=== PATIENT | female | born 1945 | race Native Hawaiian/Other Pacific Islander ===

== ENCOUNTER 2016-11-19 08:57 | Outpatient (CLI) | payer OTHER ==
[~2016-11-19 08:57] MED LIST: ACIPHEX20 MG PO; ALEN70TA19 PO; ALPR0.2566 PO; BENICAR HCT1 TAB PO; BENICAR40 MG PO; CVS OMEPRAZOLE20 MG OR; DONE5TAB PO; FOLI1TAB26 PO; FORTAMET1000 MG PO; GABA300C2 PO; HUMALOG100 MG/ML SC; HYDR-2748 PO; HYDR10TA51 PO; IRON325 MG PO; KETO10TA34 PO; LANTUS SOLOSTAR SC; LEVO0.0218 PO; LEXAPRO10 MG OR; METF500T PO; METHO2.5 PO; MOBIC15 MG PO; NAPROSYN500 MG PO; PRAVACHOL20 MG PO; PRED10TA27 PO; UNITH DIRECT150 MCG PO; VITAMIN D2 PO; ZESTRIL40 MG OR
[2016-11-19 09:12] LABS: PLATELET COUNT 364 K/uL (152-353)
[2016-11-19 09:26] LABS: POTASSIUM 4.3 mmol/L (3.6-5.2); SODIUM 137 mmol/L (136-145)
== END 2016-11-19 19:19 | disposition home or self-care (01) ==
LOC: LAB 08:57
PROVIDERS: Internal Medicine
DX: Z00.01 Encounter for general adult medical examination with abnormal findings (principal); D53.8 Other specified nutritional anemias; E11.9 Type 2 diabetes mellitus without complications; E03.8 Other specified hypothyroidism; I10 Essential (primary) hypertension; R82.99 Other abnormal findings in urine
CPT/HCPCS: 80053; 80061; 81000; 82728; 83036; 83540; 83550; 84443; 84550; 85027; 85044; 85651; 87077; 87086; 87088; 87186

== ENCOUNTER 2016-11-22 15:12 | Outpatient (CLI) | payer OTHER ==
[~2016-11-22] VITALS: Ht 30.5 cm; Wt 1.0 kg
[2016-11-22 15:15] VITALS: BP 185/78; TEMP 98.8
[2016-11-22 17:05] VITALS: BP 186/83; TEMP 98.6
== END 2016-11-22 21:29 | disposition home or self-care (01) ==
LOC: INF 15:12
DX: D50.8 Other iron deficiency anemias (principal)
CPT/HCPCS: 96365; J1756

== ENCOUNTER 2017-01-15 16:15 | Outpatient (CLI) | payer OTHER ==
[2017-01-15 17:10] LABS: PLATELET COUNT 264 K/uL (152-353)
== END 2017-01-15 19:46 | disposition home or self-care (01) ==
LOC: LABW 16:15
DX: E11.9 Type 2 diabetes mellitus without complications (principal); I10 Essential (primary) hypertension; M79.671 Pain in right foot
CPT/HCPCS: 36415; 85027; 85651

== ENCOUNTER 2017-02-18 12:22 | Outpatient (CLI) | payer OTHER ==
[2017-02-18 14:06] LABS: PLATELET COUNT 246 K/uL (152-353)
[2017-02-18 15:40] LABS: POTASSIUM 4.1 mmol/L (3.6-5.2)
== END 2017-02-18 19:16 | disposition home or self-care (01) ==
LOC: LAB 12:22
PROVIDERS: Internal Medicine Infectious Disease
DX: Z79.2 Long term (current) use of antibiotics (principal); Z51.81 Encounter for therapeutic drug level monitoring; L03.115 Cellulitis of right lower limb
CPT/HCPCS: 80048; 85027; 86140

== ENCOUNTER 2017-02-25 11:19 | Outpatient (CLI) | payer OTHER ==
[2017-02-25 11:40] LABS: PLATELET COUNT 262 K/uL (152-353)
[2017-02-25 13:17] LABS: POTASSIUM 4.7 mmol/L (3.6-5.2)
== END 2017-02-25 19:25 | disposition home or self-care (01) ==
LOC: LAB 11:19
PROVIDERS: Internal Medicine Infectious Disease
DX: M86.171 Other acute osteomyelitis, right ankle and foot (principal); L03.115 Cellulitis of right lower limb; Z79.2 Long term (current) use of antibiotics; Z45.2 Encounter for adjustment and management of vascular access device
CPT/HCPCS: 80048; 85027; 86140

== ENCOUNTER 2017-03-04 12:33 | Outpatient (CLI) | payer OTHER ==
[2017-03-04 13:28] LABS: PLATELET COUNT 249 K/uL (152-353)
[2017-03-04 13:32] LABS: POTASSIUM 4.1 mmol/L (3.6-5.2)
== END 2017-03-04 19:28 | disposition home or self-care (01) ==
LOC: LAB 12:33
PROVIDERS: Internal Medicine Infectious Disease
DX: M86.171 Other acute osteomyelitis, right ankle and foot (principal); L03.115 Cellulitis of right lower limb
CPT/HCPCS: 80048; 85027; 86140

== ENCOUNTER 2017-03-11 12:13 | Outpatient (CLI) | payer OTHER ==
[2017-03-11 13:22] LABS: POTASSIUM 3.9 mmol/L (3.6-5.2)
[2017-03-11 13:36] LABS: PLATELET COUNT 233 K/uL (152-353)
== END 2017-03-11 20:01 | disposition home or self-care (01) ==
LOC: LAB 12:13
PROVIDERS: Internal Medicine Infectious Disease
DX: L03.115 Cellulitis of right lower limb (principal); Z79.2 Long term (current) use of antibiotics; Z51.81 Encounter for therapeutic drug level monitoring
CPT/HCPCS: 80048; 85027; 86140

== ENCOUNTER 2017-03-18 11:23 | Outpatient (CLI) | payer OTHER ==
[2017-03-18 11:56] LABS: PLATELET COUNT 260 K/uL (152-353)
== END 2017-03-18 19:22 | disposition home or self-care (01) ==
LOC: LAB 11:23
PROVIDERS: Internal Medicine Infectious Disease
DX: M86.171 Other acute osteomyelitis, right ankle and foot (principal); L03.115 Cellulitis of right lower limb; E11.65 Type 2 diabetes mellitus with hyperglycemia; G57.91 Unspecified mononeuropathy of right lower limb; I10 Essential (primary) hypertension; Z79.2 Long term (current) use of antibiotics; Z45.2 Encounter for adjustment and management of vascular access device
CPT/HCPCS: 80048; 85027; 86140

== ENCOUNTER 2017-04-25 09:22 | Outpatient (CLI) | payer OTHER ==
[2017-04-25 09:40] LABS: PLATELET COUNT 248 K/uL (152-353)
[2017-04-25 09:41] LABS: POTASSIUM 4.4 mmol/L (3.6-5.2)
== END 2017-04-25 19:39 | disposition home or self-care (01) ==
LOC: LAB 09:22
PROVIDERS: Internal Medicine Infectious Disease
DX: M86.171 Other acute osteomyelitis, right ankle and foot (principal)
CPT/HCPCS: 80048; 85027; 86140

== ENCOUNTER 2017-09-02 14:24 | Outpatient (CLI) | payer OTHER ==
[2017-09-02 16:42] LABS: PLATELET COUNT 235 K/uL (152-353)
[2017-09-02 17:33] LABS: POTASSIUM 5.1 mmol/L (3.6-5.2)
== END 2017-09-02 19:33 | disposition home or self-care (01) ==
LOC: LAB 14:24
PROVIDERS: Nurse Practitioner
DX: E11.65 Type 2 diabetes mellitus with hyperglycemia (principal); E78.4 Other hyperlipidemia; I10 Essential (primary) hypertension; D63.8 Anemia in other chronic diseases classified elsewhere; E55.9 Vitamin D deficiency, unspecified
CPT/HCPCS: 80053; 80061; 82043; 82306; 82570; 83036; 85027; 85651; 86039

== ENCOUNTER 2018-03-11 23:54 | Outpatient (CLI) | payer OTHER ==
[2018-03-12 00:09] LABS: PLATELET COUNT 281 K/uL (152-353)
[2018-03-12 00:46] LABS: POTASSIUM 5.4 mmol/L (3.6-5.2); SODIUM 137 mmol/L (136-145)
== END 2018-03-11 23:58 | disposition home or self-care (01) ==
LOC: LABW 23:54 → LAB 23:54 → LABW 23:58
DX: R60.0 Localized edema (principal); E78.4 Other hyperlipidemia; D63.8 Anemia in other chronic diseases classified elsewhere; I10 Essential (primary) hypertension; E11.65 Type 2 diabetes mellitus with hyperglycemia; E55.9 Vitamin D deficiency, unspecified; E03.8 Other specified hypothyroidism
CPT/HCPCS: 80053; 80061; 82043; 82306; 82570; 83036; 83735; 84443; 85027

== ENCOUNTER 2018-06-24 21:04 | Outpatient (CLI) | payer OTHER ==
[2018-06-24 21:59] LABS: PLATELET COUNT 234 K/uL (152-353)
[2018-06-24 22:15] LABS: POTASSIUM 5.6 mmol/L (3.6-5.2)
== END 2018-06-24 23:52 | disposition home or self-care (01) ==
LOC: LAB 21:04
DX: I10 Essential (primary) hypertension (principal); E11.9 Type 2 diabetes mellitus without complications; E78.4 Other hyperlipidemia; M05.50 Rheumatoid polyneuropathy with rheumatoid arthritis of unspecified site
CPT/HCPCS: 80053; 80061; 82043; 82306; 82570; 83036; 83735; 84443; 85027

== ENCOUNTER 2018-08-11 09:56 | Outpatient (CLI) | payer OTHER | END 2018-08-11 19:55 | disposition home or self-care (01) | LOC: US 09:56 | DX: M05.131 Rheumatoid lung disease with rheumatoid arthritis of right wrist (principal) ==

== ENCOUNTER 2018-10-14 09:27 | Outpatient (CLI) | payer OTHER | END 2018-10-14 21:23 | disposition home or self-care (01) | LOC: US 09:27 | DX: R94.4 Abnormal results of kidney function studies (principal) ==

== ENCOUNTER 2018-11-18 05:12 | Outpatient (CLI) | payer OTHER ==
[2018-11-18 05:47] LABS: PLATELET COUNT 202 K/uL (152-353)
[2018-11-18 09:02] LABS: POTASSIUM 4.3 mmol/L (3.6-5.2)
== END 2018-11-18 22:33 | disposition home or self-care (01) ==
LOC: LABW 05:12
DX: E03.9 Hypothyroidism, unspecified (principal); R94.4 Abnormal results of kidney function studies; E55.9 Vitamin D deficiency, unspecified
CPT/HCPCS: 80053; 80061; 82043; 82306; 82570; 83036; 84443; 85027

== ENCOUNTER 2019-04-19 19:51 | Outpatient (CLI) | payer OTHER ==
[2019-04-19 21:15] LABS: PLATELET COUNT 256 K/uL (152-353)
[2019-04-19 23:15] LABS: POTASSIUM 5.1 mmol/L (3.6-5.2)
== END 2019-04-19 21:39 | disposition home or self-care (01) ==
LOC: LABW 19:51
DX: I10 Essential (primary) hypertension (principal); E78.2 Mixed hyperlipidemia; E11.65 Type 2 diabetes mellitus with hyperglycemia; R60.0 Localized edema; E03.8 Other specified hypothyroidism
CPT/HCPCS: 80053; 82043; 82570; 83036; 84439; 84481; 85027; 86376

== ENCOUNTER 2020-05-10 04:17 | Outpatient (CLI) | payer OTHER ==
[2020-05-10 06:57] LABS: PLATELET COUNT 188 K/uL (152-353)
[2020-05-10 08:12] LABS: POTASSIUM 5.2 mmol/L (3.6-5.2)
== END 2020-05-10 20:30 | disposition home or self-care (01) ==
LOC: LAB 04:17
PROVIDERS: Family Medicine
DX: I10 Essential (primary) hypertension (principal); E78.2 Mixed hyperlipidemia; R60.0 Localized edema; E11.65 Type 2 diabetes mellitus with hyperglycemia
CPT/HCPCS: 80053; 80061; 82043; 82306; 82570; 83036; 83735; 84436; 84443; 84479; 85027

== ENCOUNTER 2020-05-18 02:30 | Outpatient (CLI) | payer OTHER ==
[~2020-05-18] VITALS: Ht 152.4 cm; Wt 85.3 kg
[2020-05-18 08:27] VITALS: BP 151/63; TEMP 98.9
== END 2020-05-20 10:25 | disposition home or self-care (01) ==
LOC: INF 02:30 → EDSTATUS 05-31 15:30
DX: D64.9 Anemia, unspecified (principal); I10 Essential (primary) hypertension; N19 Unspecified kidney failure
CPT/HCPCS: 36415; 36430; 36591; 85014; 85018; 86850; 86900; 86901; 86922; 93005; P9016

== ENCOUNTER → 2021-01-16 | Outpatient (CLI) | payer OTHER ==
[~2021-01-16] MED LIST changes: +DONEPEZIL HYDROC5 MG PO; +ESCITALOPRAM10 MG PO; +EUTHYROX100 MCG PO; +FERROUS SULF325 M1 PO; +HYDR10TA47A PO; +METFORMIN ER1000 MG PO; +OLMESARTAN MEDO40 MG PO; +PRED5TAB3 PO; +TRAMADOL HCL100 MG PO
[2021-01-16 21:59] LABS: PLATELET COUNT 156 K/uL (152-353)
[2021-01-16 22:07] LABS: POTASSIUM 4.6 mmol/L (3.6-5.2)
== END ==
LOC: LAB 20:30
PROVIDERS: ATTEND Family Medicine
DX: I10 Essential (primary) hypertension (principal); D64.89 Other specified anemias; E11.65 Type 2 diabetes mellitus with hyperglycemia; E55.9 Vitamin D deficiency, unspecified; E78.2 Mixed hyperlipidemia; G31.84 Mild cognitive impairment of uncertain or unknown etiology; K21.9 Gastro-esophageal reflux disease without esophagitis; E03.8 Other specified hypothyroidism; K92.1 Melena; M32.10 Systemic lupus erythematosus, organ or system involvement unspecified; M05.131 Rheumatoid lung disease with rheumatoid arthritis of right wrist
CPT/HCPCS: 80053; 80061; 82272; 82306; 83036; 83735; 84443; 85007; 85027; 85652

== ENCOUNTER 2021-01-18 11:45 | Observation (INO) | payer OTHER ==
[2021-01-18] VITALS (12 sets, daily range): BP systolic 128–145; BP diastolic 45–67; TEMP 97.7–99; Ht 160 cm; Wt 85.4 kg
[~2021-01-18] VITALS: Ht 160 cm; Wt 85.4 kg
[~2021-01-18 11:45] MED LIST changes: -DONEPEZIL HYDROC5 MG PO; -ESCITALOPRAM10 MG PO; -EUTHYROX100 MCG PO; -FERROUS SULF325 M1 PO; -HYDR10TA47A PO; -METFORMIN ER1000 MG PO; -OLMESARTAN MEDO40 MG PO; -PRED5TAB3 PO; -TRAMADOL HCL100 MG PO
[2021-01-18 13:01] LABS: PLATELET COUNT 192 K/uL (152-353)
[2021-01-18 13:25] LABS: POTASSIUM 4.1 mmol/L (3.6-5.2)
--- NOTE | 2021-01-18 13:45 | NUR ---
LAB CALLED TO NOTIFY OF CRITICAL HEMOGLOBIN LAB RESULT OF 6.9, DR. BAUTISTA MADE AWARE
[2021-01-18] MEDS ORDERED: METFORMIN ER1000 MG PO (16:02)
[2021-01-18] MEDS ORDERED: HYDR10TA47A PO (16:05)
[2021-01-18] MEDS ORDERED: PRED5TAB3 PO (16:07)
[2021-01-18] MEDS ORDERED: PRAVACHOL20 MG PO (16:08)
[2021-01-18] MEDS ORDERED: OLMESARTAN MEDO40 MG PO (16:08)
[2021-01-18] MEDS ORDERED: ESCITALOPRAM10 MG PO (16:10)
[2021-01-18] MEDS ORDERED: TRAMADOL HCL100 MG PO (16:10)
[2021-01-18] MEDS ORDERED: EUTHYROX100 MCG PO (16:12)
[2021-01-18] MEDS ORDERED: FERROUS SULF325 M1 PO (16:13)
[2021-01-18] MEDS ORDERED: DONEPEZIL HYDROC5 MG PO (16:13)
--- NOTE | 2021-01-18 17:50 | NUR ---
BLOOD BAG AND TUBING RETURNED TO LAB AT THIS TIME, PT SHOWED NO SIGNS OF REACTION DURING INFUSION
[2021-01-19] VITALS: BP 121/60; TEMP 98.6
[2021-01-19 01:30] VITALS: BP 121/60; TEMP 98.6
[2021-01-19 02:25] VITALS: BP 122/72; TEMP 98.2
[2021-01-19 04:00] VITALS: BP 93/43; TEMP 98.5
--- NOTE | 2021-01-19 07:45 | NUR ---
PT THIS AM STATES "I FEEL MUCH BETTER I FEEL LIKE I COULD GET UP AND DANCE," NAD NOTED, DAUGHTER AT BEDSIDE, NO NEEDS AT THIS TIME, WILL CONTINUE TO MONITOR, CALL LIGHT WITHIN REACH
[2021-01-19 08:00] VITALS: BP 121/53; TEMP 98.1
--- NOTE | 2021-01-19 08:45 | NUR ---
PT D/C INSTRUCTIONS GIVEN AND EXPLAINED TO PT AND DAUGHTER, BOTH VERBALIZED UNDERSTANDING, FOLLOWUP APPT MADE WITH ERMIAS JOSE ON January, IV REMOVED FROM LT WRIST WITH CATHETER INTACT, NO FURTHER NEEDS AT THIS TIME
--- NOTE | 2021-01-19 09:00 | NUR ---
PT DC VIA WHEELCHAIR WITH DAUGHTER AT SIDE, NAD NOTED, BELONGINGS AND HOME MEDS ARE WITH PT
== END 2021-01-19 09:00 | disposition home or self-care (01) ==
LOC: MED/SURG 11:45
PROVIDERS: ADMIT Internal Medicine Endocrinology, Diabetes & Metabolism; ATTEND Internal Medicine Endocrinology, Diabetes & Metabolism
PROC: 30233N1 Transfusion of Nonautologous Red Blood Cells into Peripheral Vein, Percutaneous Approach (ICD-10-PCS; principal; 2021-01-18)
DX: D50.8 Other iron deficiency anemias (principal); I10 Essential (primary) hypertension; E78.49 Other hyperlipidemia; K21.9 Gastro-esophageal reflux disease without esophagitis; M32.8 Other forms of systemic lupus erythematosus; E11.42 Type 2 diabetes mellitus with diabetic polyneuropathy; E03.8 Other specified hypothyroidism; F03.90 Unspecified dementia, unspecified severity, without behavioral disturbance, psychotic disturbance, mood disturbance, and anxiety
CPT/HCPCS: 36415; 36430; 80053; 85007; 85008; 85014; 85018; 85027; 86850; 86900; 86901; 86922; 87635; 99220; G0378; G0379; P9016; U0003

== ENCOUNTER → 2021-02-21 | Outpatient (CLI) | payer OTHER ==
[~2021-02-21] MED LIST changes: +DONEPEZIL HYDROC5 MG PO; +ESCITALOPRAM10 MG PO; +EUTHYROX100 MCG PO; +FERROUS SULF325 M1 PO; +HYDR10TA47A PO; +METFORMIN ER1000 MG PO; +OLMESARTAN MEDO40 MG PO; +PRED5TAB3 PO; +TRAMADOL HCL100 MG PO
[2021-02-21 23:27] LABS: PLATELET COUNT 260 K/uL (152-353)
[2021-02-21 23:45] LABS: POTASSIUM 4.9 mmol/L (3.6-5.2)
== END ==
LOC: LABW 21:58
PROVIDERS: ATTEND Nurse Practitioner Family
DX: D64.89 Other specified anemias (principal); E78.49 Other hyperlipidemia; I10 Essential (primary) hypertension; M19.90 Unspecified osteoarthritis, unspecified site; E11.9 Type 2 diabetes mellitus without complications; Z79.899 Other long term (current) drug therapy; R53.83 Other fatigue; R53.81 Other malaise; M25.512 Pain in left shoulder; M25.511 Pain in right shoulder; M25.522 Pain in left elbow; M25.521 Pain in right elbow; M25.551 Pain in right hip; M25.552 Pain in left hip
CPT/HCPCS: 80053; 80061; 82306; 83036; 84439; 84443; 85008; 85027

== ENCOUNTER 2021-05-31 13:20 | Observation (INO) | payer OTHER ==
[~2021-05-31] VITALS: Ht 162.6 cm; Wt 83.1 kg
[2021-05-31 13:33] VITALS: BP 96/65; TEMP 98.1; Ht 162.6 cm; Wt 83.1 kg
[2021-05-31] MEDS ORDERED: IBU800 MG PO (13:49)
[2021-05-31] MEDS ORDERED: MOBIC15 MG PO (13:50)
[2021-05-31 16:28] VITALS: BP 153/66; TEMP 98.1
[2021-05-31 20:00] VITALS: BP 106/74; TEMP 98.3
[2021-06-01] VITALS: BP 145/56; TEMP 98.4
[2021-06-01 04:00] VITALS: BP 152/74; TEMP 98
--- NOTE | 2021-06-01 05:54 | NUR ---
PATIENT DENIES ANY SOB AND PATIENT IS NOT DIZZY UPON GETTING ON HTE BED SIDE COMMODE
--- NOTE | 2021-06-01 05:56 | NUR ---
PATIENT HAS A WOUND TO HER ANKLE, PATIENT HAS BEEN TREATING AT HOME WITH "NAYELI." PATIENT DENIES PAIN BUT SAYS THERE IS A SMALL AMOUNT OF TENDERNESSS IN THE MIDDLE. THE MIDDLE OF THE WOUND HAS A MEDIUM SIZE SLOUGH. DRESSING WAS CHANGED AND WOUND WILL BE REPORTED TO [facility]
[2021-06-01 08:00] VITALS: BP 130/88; TEMP 98.5
[2021-06-01 10:39] LABS: POTASSIUM 4.5 mmol/L (3.6-5.2)
[2021-06-01 10:41] LABS: PLATELET COUNT 105 K/uL (152-353)
[2021-06-01] MEDS ORDERED: FOLI1TAB26 PO (11:41)
[2021-06-01] MEDS ORDERED: CYAN10009 IM (11:43)
[2021-06-01] MEDS ORDERED: OLMESARTAN MEDO40 MG PO (11:50)
--- NOTE | 2021-06-01 11:59 | NUR ---
PATIENT'S NEW HOME MEDICATIONS FOLLOWS: FOLIC ACID TAKE 1 TABLET EVERY MORNING VITAMIN B12 1 MG INTERMUSCULAR INJECTION EVERY MORNING
[2021-06-01 12:00] VITALS: BP 147/68; TEMP 97.6
--- NOTE | 2021-06-01 12:15 | NUR ---
REVIEWED DISCHARGE INSTRUCTIONS WITH PATIENT AND PATIENT'S DAUGHTER, BOTH V/O UNDERSTANDING AND DENIES ANY FURTHER QUESTIONS OR C/O AT THIS TIME. IV D/C'D WITH TIP IN TACT. PATIENT TOLERATED WELL.
--- NOTE | 2021-06-01 12:20 | NUR ---
PATIENT D/C'D FROM FACILITY AND TAKEN TO POV VIA WHEELCHAIR WITH DAUGHTER AT SIDE. NAD NOTED WITH PATIENT AT THIS TIME.
== END 2021-06-01 12:20 | disposition home or self-care (01) ==
LOC: MED/SURG 13:20
PROVIDERS: ADMIT Internal Medicine; ATTEND Internal Medicine
PROC: 30233N1 Transfusion of Nonautologous Red Blood Cells into Peripheral Vein, Percutaneous Approach (ICD-10-PCS; principal; 2021-05-31)
PROC: 30233N1 Transfusion of Nonautologous Red Blood Cells into Peripheral Vein, Percutaneous Approach (ICD-10-PCS; 2021-06-01)
DX: D64.89 Other specified anemias (principal); E03.8 Other specified hypothyroidism; I10 Essential (primary) hypertension; E78.49 Other hyperlipidemia; F03.90 Unspecified dementia, unspecified severity, without behavioral disturbance, psychotic disturbance, mood disturbance, and anxiety; M06.8A Other specified rheumatoid arthritis, other specified site; F32.89 Other specified depressive episodes; E11.9 Type 2 diabetes mellitus without complications; M32.8 Other forms of systemic lupus erythematosus
CPT/HCPCS: 36430; 36591; 80048; 82607; 82728; 82746; 82948; 83540; 83550; 85014; 85018; 85027; 86850; 86900; 86901; 86922; 87635; 96372; 96374; 99220; G0378; G0379; J1940; J3420; P9016; U0003

== ENCOUNTER → 2021-06-11 | Outpatient (CLI) | payer OTHER ==
[~2021-06-11] MED LIST changes: +CYAN10009 IM; +IBU800 MG PO
[2021-06-11 03:33] LABS: PLATELET COUNT 361 K/uL (152-353)
== END ==
LOC: LAB 02:22
PROVIDERS: ATTEND Nurse Practitioner Family
DX: D64.89 Other specified anemias (principal)
CPT/HCPCS: 85008; 85027

== ENCOUNTER → 2021-12-05 | Outpatient (CLI) | payer OTHER ==
[2021-12-05 23:00] LABS: PLATELET COUNT 281 K/uL (152-353)
[2021-12-05 23:21] LABS: POTASSIUM 3.9 mmol/L (3.6-5.2)
== END ==
LOC: LAB 22:12
PROVIDERS: ATTEND Nurse Practitioner Family
DX: D64.89 Other specified anemias (principal); M19.90 Unspecified osteoarthritis, unspecified site; E78.49 Other hyperlipidemia; E03.8 Other specified hypothyroidism; I10 Essential (primary) hypertension; R53.83 Other fatigue; E61.1 Iron deficiency; E55.9 Vitamin D deficiency, unspecified; R53.81 Other malaise; Z79.899 Other long term (current) drug therapy
CPT/HCPCS: 80053; 80061; 82306; 82607; 82728; 82746; 83036; 83540; 84439; 84443; 85027

== ENCOUNTER 2022-04-24 21:25 | Outpatient (CLI) | payer OTHER ==
[2022-04-24 22:14] LABS: PLATELET COUNT 204 K/uL (152-353)
[2022-04-24 22:46] LABS: POTASSIUM 4.6 mmol/L (3.6-5.2)
== END 2022-04-24 23:30 | disposition home or self-care (01) ==
LOC: LAB 21:25
PROVIDERS: ATTEND Nurse Practitioner Family
DX: D64.89 Other specified anemias (principal); E61.1 Iron deficiency; E03.8 Other specified hypothyroidism; E78.49 Other hyperlipidemia; I10 Essential (primary) hypertension; R53.83 Other fatigue; E55.9 Vitamin D deficiency, unspecified; E83.42 Hypomagnesemia; E83.51 Hypocalcemia; Z79.899 Other long term (current) drug therapy
CPT/HCPCS: 80053; 80061; 82306; 82607; 82728; 83036; 83540; 84439; 84443; 85027

== ENCOUNTER 2022-09-19 05:46 | Outpatient (CLI) | payer OTHER ==
[2022-09-19 16:41] LABS: PLATELET COUNT 253 K/uL (152-353)
[2022-09-19 17:15] LABS: POTASSIUM 4.2 mmol/L (3.6-5.2)
== END 2022-09-19 19:08 | disposition home or self-care (01) ==
LOC: LAB 05:46
PROVIDERS: ATTEND Nurse Practitioner Family
DX: E03.8 Other specified hypothyroidism (principal); D64.89 Other specified anemias; E78.49 Other hyperlipidemia; M19.90 Unspecified osteoarthritis, unspecified site; I10 Essential (primary) hypertension; E55.9 Vitamin D deficiency, unspecified; R53.83 Other fatigue; E61.1 Iron deficiency; G89.29 Other chronic pain; M32.8 Other forms of systemic lupus erythematosus; F32.9 Major depressive disorder, single episode, unspecified; M06.9 Rheumatoid arthritis, unspecified; E11.9 Type 2 diabetes mellitus without complications
CPT/HCPCS: 80053; 80061; 82306; 82607; 82728; 82746; 83036; 83540; 84439; 84443; 85027

== ENCOUNTER 2022-12-20 16:25 | Outpatient (CLI) | payer OTHER | END 2022-12-20 20:45 | disposition home or self-care (01) | LOC: RAD 16:25 | PROVIDERS: ATTEND Family Medicine | DX: M79.671 Pain in right foot (principal); R07.81 Pleurodynia ==